=== PATIENT | male | born 1940 | race Caucasian/White ===

== ENCOUNTER 2021-05-28 10:52 | Emergency (ER) | payer MEDICARE, OTHER ==
[~2021-05-28] VITALS: Ht 172.7 cm; Wt 91.2 kg
--- NOTE | 2021-05-28 11:17 | NUR ---
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
--- NOTE | 2021-05-28 14:38 | NUR ---
patient to room from lobby
--- NOTE | 2021-05-28 14:50 | NUR ---
PT AMBULATORY C STEADY GAIT BACK FROM [facility]. CHANGED INTO GOWN. PLACED ON ALL MONITORS. PT STATES ON SAT HE 'WASNT FEELING GREAT, WOKE UP WITH A H/A AND SOME DIZZINESS...THAT EVENING IT WAS WORSE FOLLOWED BY [facility] AND THEN IT FELT LIKE MY EYES WERE DRIFTING RIGHT, THEN WOULD QUICKLY LOOK LEFT". [facility] SPOKE C RN, BUT WAS NOT SEEN. [facility] ADVIS[facility] COM[facility] TODAY. PT SEES A NEUROLOGIST AT [facility].
[2021-05-28] MEDS ORDERED: SODIUM CHLORIDE 0.9% 1,000ML IVBOLUS ONE (15:00)
[2021-05-28] MEDS ORDERED: MECLIZINE CHEWABLE 25 MG TAB PO ONE (15:00)
[2021-05-28] MEDS ORDERED: SODIUM CHLORIDE 0.9% 1,000 ML IV ONE (15:00)
[2021-05-28 15:41] LABS: BASOPHILS % (AUTO) 1 % (0-1); EOSINOPHILS % (AUTO) 4 % (1-7); LYMPHOCYTES % (AUTO) 39 % (22-44); MEAN CORPUSCULAR HEMOGLOBIN 31.1 pg (27.5-34.5); MEAN CORPUSCULAR HGB CONC 34.5 g/dL (33.2-36.2); MEAN PLATELET VOLUME 7.7 fL (7.4-10.4); MONOCYTES % (AUTO) 10 % (2-9); NEUTROPHILS % (AUTO) 47 % (42-75); PLATELET COUNT 202 x10^3/uL (130-400); RED BLOOD COUNT 5.12 x10^6/uL (4.38-5.82); RED CELL DISTRIBUTION WIDTH 13.1 % (9.4-14.8)
[2021-05-28 15:51] LABS: ALBUMIN 4.1 g/dL (3.4-5.0); ANION GAP 3 mmol/L (5-15); CALCIUM 9.1 mg/dL (8.5-10.1); CHLORIDE 106 mmol/L (98-107); CREATININE 1.08 mg/dL (0.7-1.3)
--- NOTE | 2021-05-28 16:09 | NUR ---
pt to ct.
[2021-05-28] MEDS ORDERED: MECLIZINE CHEWABLE 25 MG TAB ONE (16:38)
[2021-05-28 16:41] VITALS: BP 137/67
--- NOTE | 2021-05-28 16:51 | NUR ---
Patient given discharge instructions and they have confirmed that they understand the instructions. Patient ambulatory with steady gait. NAD, all questions answered appropriately, denies additional needs at this time. No personal belongings left in room after discharge.
== END 2021-05-28 16:52 | disposition home or self-care (01) ==
LOC: ED 16:47
DX: R42 Dizziness and giddiness (principal); E78.5 Hyperlipidemia, unspecified; I10 Essential (primary) hypertension
CPT/HCPCS: 36415; 70450; 80048; 82040; 85025; 93005; 96360; 96361; 99285; J7030